=== PATIENT | female | born 1935 | race Caucasian/White ===

== ENCOUNTER 2017-02-08 20:17 | Inpatient (IN) | payer OTHER ==
[~2017-02-08] VITALS: Ht 152.4 cm; Wt 48.2 kg
[~2017-02-08 20:17] MED LIST: ALEVE220 M2 PO; CLONAZEPAM0.5 MG PO; ESCITALOPRAM OX10 MG PO; HYDROMORPHONE HC4 MG PO; LIDODERM 5% P1 PATCH TD; LORAZEPAM0.5 MG PO; MIRALAX255 GM PO; MIRTAZAPINE15 MG PO; PROMETHAZINE12.5 M1 PO; RABEPRAZOLE SOD20 MG PO; SUPER B COMP1 TABLET PO
[2017-02-08 21:01] LABS: HEMATOCRIT 38.6 % (36.0-46.0); MCH 29.5 PG (29.0-34.0); MCHC 32.1 G/DL (30.0-36.0); MCV 91.9 FL (83-99); MEAN PLAT.VOLUME 10.4 uM^3 (9.5-12.4); PLATELET COUNT 190 K/uL (156-360); RBC DIS.WIDTH-CV 12.6 % (11.8-14.6); RBC DIS.WIDTH-SD 41.7 % (39-53); WHITE BLOOD COUNT 7.7 K/uL (4.1-10.2)
[2017-02-08 21:12] LABS: CHLORIDE 106 mEq/L (99-109); POTASSIUM 4.5 mEq/L (3.7-5.4); SODIUM 141 mEq/L (136-147)
[2017-02-08 21:14] LABS: GLUCOSE 102 mg/dL (70-99)
[2017-02-08 21:15] LABS: ANION GAP 10 MEQ/L (2-14)
[2017-02-08 21:16] LABS: TOTAL BILIRUBIN 0.5 mg/dL (0.0-1.0)
[2017-02-08 21:18] LABS: ALKALINE PHOSPHATASE 46 IU/L (3-129); GFR ESTIMATE (CALCULATED) > 59 mL/min/
[2017-02-08 21:19] LABS: UREA NITROGEN (BUN) 16 mg/dL (9-23)
[2017-02-08 21:45] LABS: PROTHROMBIN TIME 10.3 (9.2-11.2); PTT 29.6 (25-32)
[2017-02-08 21:49] LABS: TROP-I INTERPRETATION NEGATIVE; TROPONIN-I 0.01 ng/mL (0.0-0.30)
[2017-02-08 23:16] LABS: ADD MIUA? NO; BILIRUBIN NEGATIVE; BLOOD NEGATIVE; COLOR YELLOW ((YELLOW)); GLUCOSE (STRIP) NEGATIVE; KETONES 20; LEUKOCYTES NEGATIVE; NITRITE NEGATIVE; PROTEIN (STRIP) NEGATIVE; SPECIFIC GRAVITY 1.015 (1.000-1.030); UCUL ADDED? NO; UROBILINOGEN 0.2 MG/DL (0.2-1.0)
[2017-02-09] VITALS (7 sets, daily range): BP systolic 103–172; BP diastolic 56–82
[2017-02-09] MEDS ORDERED: DILAUDID4 MG PO ×2 (00:58)
[2017-02-09] MEDS ORDERED: CALCIUM 600 +1 EA16 PO (01:00)
[2017-02-09] MEDS ORDERED: VITAMIN D31000 UNIT PO (01:00)
[2017-02-09] MEDS ORDERED: EXCEDRIN EXTRA1 EACH PO (01:01)
[2017-02-09 09:34] LABS: HEMATOCRIT 30.7 % (36.0-46.0); MCH 29.6 PG (29.0-34.0); MCHC 31.6 G/DL (30.0-36.0); MCV 93.6 FL (83-99); MEAN PLAT.VOLUME 10.9 uM^3 (9.5-12.4); PLATELET COUNT 157 K/uL (156-360); RBC DIS.WIDTH-CV 12.7 % (11.8-14.6); RBC DIS.WIDTH-SD 43.8 % (39-53)
[2017-02-09 09:36] LABS: RED BLOOD COUNT 3.28 M/uL (3.80-5.20); WHITE BLOOD COUNT 10.1 K/uL (4.1-10.2)
[2017-02-09 09:56] LABS: SODIUM 146 mEq/L (136-147)
[2017-02-09 09:57] LABS: CHLORIDE 118 mEq/L (99-109); POTASSIUM 3.4 mEq/L (3.7-5.4)
[2017-02-09 09:58] LABS: GLUCOSE 73 mg/dL (70-99)
[2017-02-09 09:59] LABS: ANION GAP 9 MEQ/L (2-14)
[2017-02-09 10:00] LABS: TOTAL BILIRUBIN 0.6 mg/dL (0.0-1.0)
[2017-02-09 10:02] LABS: ALKALINE PHOSPHATASE 32 IU/L (3-129); GFR ESTIMATE (CALCULATED) > 59 mL/min/
[2017-02-09 10:03] LABS: UREA NITROGEN (BUN) 12 mg/dL (9-23)
[2017-02-10 03:35] VITALS: BP 172/96
[2017-02-10 07:43] VITALS: BP 156/84
[2017-02-10 08:10] LABS: MAGNESIUM 2.1 mg/dl (1.3-2.7)
[2017-02-10 10:01] LABS: ANION GAP 11 MEQ/L (2-14); CHLORIDE 108 MEQ/L (99-109); POTASSIUM 3.7 MEQ/L (3.7-5.4); SAMPLE HEMOLYSIS CHECK 0; SAMPLE ICTERIC CHECK 0; SAMPLE LIPEMIA CHECK 0; SODIUM 143 MEQ/L (136-147)
[2017-02-10 10:06] LABS: GFR ESTIMATE (CALCULATED) > 59 mL/min/; UREA NITROGEN (BUN) 13 mg/dL (9-23)
[2017-02-10 10:08] LABS: GLUCOSE 117 mg/dL (70-99)
[2017-02-10 11:48] VITALS: BP 157/82
[2017-02-10 16:04] VITALS: BP 170/94
[2017-02-10 19:49] VITALS: BP 165/86
[2017-02-10 23:45] VITALS: BP 170/91
[2017-02-11 06:08] LABS: HEMATOCRIT 34.5 % (36.0-46.0); MCH 29.9 PG (29.0-34.0); MCHC 33.3 G/DL (30.0-36.0); MCV 89.8 FL (83-99); MEAN PLAT.VOLUME 10.6 uM^3 (9.5-12.4); PLATELET COUNT 190 K/uL (156-360); RBC DIS.WIDTH-CV 12.8 % (11.8-14.6); RED BLOOD COUNT 3.84 M/uL (3.80-5.20); WHITE BLOOD COUNT 8.1 K/uL (4.1-10.2)
[2017-02-11 07:18] LABS: ANION GAP 11 MEQ/L (2-14); CHLORIDE 108 MEQ/L (99-109); GFR ESTIMATE (CALCULATED) > 59 mL/min/; POTASSIUM 3.2 MEQ/L (3.7-5.4); SAMPLE HEMOLYSIS CHECK 0; SAMPLE ICTERIC CHECK 0; SAMPLE LIPEMIA CHECK 0; SODIUM 143 MEQ/L (136-147); UREA NITROGEN (BUN) 15 mg/dL (9-23)
[2017-02-11 07:19] LABS: GLUCOSE 83 mg/dL (70-99)
[2017-02-11 07:49] VITALS: BP 178/94
[2017-02-11 11:30] VITALS: BP 184/86
[2017-02-11 12:39] VITALS: BP 163/80
[2017-02-11 15:44] VITALS: BP 143/85
[2017-02-11 20:03] VITALS: BP 164/82
[2017-02-12] VITALS (7 sets, daily range): BP systolic 112–163; BP diastolic 74–90
[2017-02-13 03:44] VITALS: BP 116/79
[2017-02-13 08:54] VITALS: BP 151/95
[2017-02-13] MEDS ORDERED: AMLODIPINE BESYL5 MG PO (11:59)
[2017-02-13 12:35] VITALS: BP 131/75
[2017-02-13] MEDS ORDERED: LIDODERM 5% P1 PATCH TD (16:10)
[2017-02-13] MEDS ORDERED: RABEPRAZOLE SOD20 MG PO (16:10)
== END 2017-02-13 17:06 | disposition home or self-care (01) | DRG 379 ==
LOC: EME 20:17 → 5SOUTH 02-09 02:26 → EDOF 02-09 02:26 → 5SOUTH 02-09 04:12
PROVIDERS: Emergency Medicine; Internal Medicine; Internal Medicine Gastroenterology; Nurse Practitioner Adult Health
PROC: 0DJD8ZZ Inspection of Lower Intestinal Tract, Via Natural or Artificial Opening Endoscopic (ICD-10-PCS; principal; 2017-02-10)
DX: K62.5 Hemorrhage of anus and rectum (principal); E83.51 Hypocalcemia; I10 Essential (primary) hypertension; K56.41 Fecal impaction; K59.01 Slow transit constipation; K22.4 Dyskinesia of esophagus; M21.921 Unspecified acquired deformity of right upper arm; Z85.118 Personal history of other malignant neoplasm of bronchus and lung; K21.9 Gastro-esophageal reflux disease without esophagitis; K22.5 Diverticulum of esophagus, acquired; K57.30 Diverticulosis of large intestine without perforation or abscess without bleeding; F41.9 Anxiety disorder, unspecified; F32.9 Major depressive disorder, single episode, unspecified; K52.89 Other specified noninfective gastroenteritis and colitis; R13.12 Dysphagia, oropharyngeal phase; E87.6 Hypokalemia; T40.2X5A Adverse effect of other opioids, initial encounter; F41.8 Other specified anxiety disorders; G89.29 Other chronic pain; E74.39 Other disorders of intestinal carbohydrate absorption; Z85.89 Personal history of malignant neoplasm of other organs and systems; D50.9 Iron deficiency anemia, unspecified
CPT/HCPCS: 70490; 74176; 74230; 74241; 80048; 80053; 81003; 83605; 83690; 83735; 84443; 84484; 85027; 85610; 85730; 86900; 86901; 92611 GN; 99281; 99285; J0360; J0610; J1170; J1200; J1644; J1885; J2405; J7030; J7050; S0028